=== PATIENT | female | born 1990 | race Caucasian/White ===

== ENCOUNTER 2016-12-01 08:00 | Outpatient (CLI) | payer OTHER ==
[~2016-12-01 08:00] MED LIST: COLACE100 MG PO
== END 2016-12-01 11:39 | disposition home or self-care (01) ==
LOC: GENOP 08:00
DX: O26.893 Other specified pregnancy related conditions, third trimester (principal); R10.9 Unspecified abdominal pain; Z3A.40 40 weeks gestation of pregnancy
CPT/HCPCS: 81001; G0463; J7120

== ENCOUNTER 2016-12-02 16:24 | Inpatient (IN) | payer OTHER ==
[~2016-12-02] VITALS: Ht 170.2 cm; Wt 107.0 kg
[2016-12-02 16:58] LABS: HEMOGLOBIN 10.4 gm/dl (12.3-15.3); RED BLOOD COUNT 3.74 M/UL (4.00-5.10); WHITE BLOOD COUNT 19.5 K/UL (4.5-11.0)
[2016-12-03 02:49] LABS: HEMOGLOBIN 9.4 gm/dl (12.3-15.3)
[2016-12-04] MEDS ORDERED: NORCO 5-325 TA1 EACH PO (11:52)
[2016-12-04] MEDS ORDERED: IBUPROFEN600 MG PO (11:53)
== END 2016-12-04 16:19 | disposition home or self-care (01) | DRG 775 ==
LOC: GENOP 16:24 → OB 16:36
PROVIDERS: Obstetrics & Gynecology; ADMIT Obstetrics & Gynecology
PROC: 10E0XZZ Delivery of Products of Conception, External Approach (ICD-10-PCS; principal; 2016-12-02)
PROC: 3E033VJ Introduction of Other Hormone into Peripheral Vein, Percutaneous Approach (ICD-10-PCS; 2016-12-02)
PROC: 10907ZC Drainage of Amniotic Fluid, Therapeutic from Products of Conception, Via Natural or Artificial Opening (ICD-10-PCS; 2016-12-02)
PROC: 3E0R3CZ (ICD-10-PCS; 2016-12-02)
DX: O48.0 Post-term pregnancy (principal); O99.334 Smoking (tobacco) complicating childbirth; F17.200 Nicotine dependence, unspecified, uncomplicated; O99.613 Diseases of the digestive system complicating pregnancy, third trimester; K02.9 Dental caries, unspecified; Z3A.40 40 weeks gestation of pregnancy; Z37.0 Single live birth; O99.214 Obesity complicating childbirth; E66.9 Obesity, unspecified; O99.513 Diseases of the respiratory system complicating pregnancy, third trimester; J45.909 Unspecified asthma, uncomplicated; O99.353 Diseases of the nervous system complicating pregnancy, third trimester; G43.009 Migraine without aura, not intractable, without status migrainosus; Z82.49 Family history of ischemic heart disease and other diseases of the circulatory system; Z82.5 Family history of asthma and other chronic lower respiratory diseases; Z83.3 Family history of diabetes mellitus; Z82.0 Family history of epilepsy and other diseases of the nervous system
CPT/HCPCS: 36415; 51702; 80307; 81001; 82800; 85014; 85018; 85025; C9113; J2590; J2795; J7120

== ENCOUNTER 2020-10-12 20:10 | Observation (INO) | payer OTHER ==
[~2020-10-12 20:10] MED LIST changes: +CORTISPORIN OTI10 M1 EARBOTH; +EXPECTORANT200 MG PO; +IBUPROFEN600 MG PO; +LODINE CAP 300300 MG PO; +NORCO 5-325 TA1 EACH PO; +SILVADENE CREAM20 GM TOP; +TAMIFLU75 MG PO; +TESSALON PERLE100 MG PO; +ZOFRAN ODT4 MG PO; +ZOFRAN4 MG PO
[2020-10-12 23:03] LABS: HEMOGLOBIN 10.6 gm/dl (12.3-15.3); RED BLOOD COUNT 3.55 M/UL (4.00-5.10); WHITE BLOOD COUNT 22.4 K/UL (4.5-11.0)
[2020-10-13 06:15] LABS: HEMOGLOBIN 10.4 gm/dl (12.3-15.3); RED BLOOD COUNT 3.47 M/UL (4.00-5.10); WHITE BLOOD COUNT 16.8 K/UL (4.5-11.0)
== END 2020-10-13 16:43 | disposition home or self-care (01) ==
LOC: GENOP 20:10 → OB 10-13 02:38 → GENOP 10-13 08:29 → OB 10-13 16:43
PROVIDERS: ADMIT Obstetrics & Gynecology
DX: O23.03 Infections of kidney in pregnancy, third trimester (principal); N10 Acute pyelonephritis; O16.3 Unspecified maternal hypertension, third trimester; O99.513 Diseases of the respiratory system complicating pregnancy, third trimester; J45.909 Unspecified asthma, uncomplicated; O99.283 Endocrine, nutritional and metabolic diseases complicating pregnancy, third trimester; E03.9 Hypothyroidism, unspecified; O99.353 Diseases of the nervous system complicating pregnancy, third trimester; G43.009 Migraine without aura, not intractable, without status migrainosus; O99.333 Smoking (tobacco) complicating pregnancy, third trimester; F17.210 Nicotine dependence, cigarettes, uncomplicated; Z20.822 Contact with and (suspected) exposure to COVID-19; Z3A.34 34 weeks gestation of pregnancy; Z91.048 Other nonmedicinal substance allergy status; Z79.899 Other long term (current) drug therapy
CPT/HCPCS: 36415; 71046; 81001; 85025; 87077; 87086; 87186; G0378; J0696; J7120; U0002

== ENCOUNTER 2020-12-02 05:34 | Inpatient (IN) | payer OTHER ==
[~2020-12-02] VITALS: Ht 170.2 cm; Wt 102.1 kg
[2020-12-02 06:36] LABS: HEMOGLOBIN 10.7 gm/dl (12.3-15.3); RED BLOOD COUNT 3.77 M/UL (4.00-5.10); WHITE BLOOD COUNT 13.5 K/UL (4.5-11.0)
[2020-12-02] MEDS ORDERED: IBUPROFEN600 MG PO (22:17)
[2020-12-02] MEDS ORDERED: COLACE 100MG C100 MG PO (22:17)
[2020-12-03 06:26] LABS: HEMOGLOBIN 8.9 gm/dl (12.3-15.3)
== END 2020-12-04 20:07 | disposition home or self-care (01) | DRG 807 ==
LOC: OB 05:34
PROVIDERS: ADMIT Obstetrics & Gynecology
PROC: 10E0XZZ Delivery of Products of Conception, External Approach (ICD-10-PCS; principal; 2020-12-02)
PROC: 10907ZC Drainage of Amniotic Fluid, Therapeutic from Products of Conception, Via Natural or Artificial Opening (ICD-10-PCS; 2020-12-02)
DX: O48.0 Post-term pregnancy (principal); Z37.0 Single live birth; Z3A.41 41 weeks gestation of pregnancy
CPT/HCPCS: 51702; 80307; 81001; 82800; 85014; 85018; 85025; 87635; J0595; J2405; J2590; J2795; J7120